=== PATIENT | female | born 1995 | race Caucasian/White ===

== ENCOUNTER → 2019-06-10 10:15 | Outpatient (BNVA) | payer MEDICAID, SELFPAY | PROVIDERS: Family Provider Family Medicine; Visit Provider Obstetrics & Gynecology | DX: N97.0 Female infertility associated with anovulation (principal) | CPT/HCPCS: 84144 ==

== ENCOUNTER → 2019-07-13 09:05 | Outpatient (BNVA) | payer MEDICAID, SELFPAY | PROVIDERS: Family Provider Family Medicine; Visit Provider Obstetrics & Gynecology | DX: N97.0 Female infertility associated with anovulation (principal) | CPT/HCPCS: 84144 ==

== ENCOUNTER → 2019-11-06 11:03 | Outpatient (BNVA) | payer MEDICAID, SELFPAY | PROVIDERS: Family Provider Family Medicine; Visit Provider Obstetrics & Gynecology | DX: E28.2 Polycystic ovarian syndrome (principal) | CPT/HCPCS: 84144 ==

== ENCOUNTER → 2020-03-07 16:46 | Outpatient (BNVA) | payer MEDICAID, SELFPAY | PROVIDERS: Family Provider Family Medicine; Visit Provider Obstetrics & Gynecology | DX: E28.2 Polycystic ovarian syndrome (principal) | CPT/HCPCS: 84146; 84443 ==

== ENCOUNTER → 2020-03-29 12:54 | Outpatient (BNVA) | payer MEDICAID, SELFPAY | PROVIDERS: Family Provider Family Medicine; Visit Provider Internal Medicine | DX: E28.2 Polycystic ovarian syndrome (principal); L68.0 Hirsutism; N97.0 Female infertility associated with anovulation; R63.5 Abnormal weight gain; Z86.32 Personal history of gestational diabetes | CPT/HCPCS: 99204 ==

== ENCOUNTER 2020-06-10 10:15 | Emergency (ER) | payer MEDICAID, SELFPAY ==
[2020-06-10 10:16] VITALS: BP 142/98; PULSE 118; RESP 18; TEMP 36.7; O2SAT 98; BMI 38.2
[2020-06-10 10:26] VITALS: RESP 18
--- NOTE | 2020-06-10 10:28 | CT_ITS ---
WS: [id number] CT HEAD TECHNIQUE: Noncontrast CT of the head obtained from the skullbase to the vertex. CLINICAL INFORMATION: fall + LOC COMPARISON: None. DLP: 769.[address] scans at [facility] use at least one of these dose optimization techniques: automat ed exposure control; mA and/or kV adjustment per patient size (includes targeted exams where dose is matched to clinical indication); or iterative reconstruction. FINDINGS: No evidence of intracranial hemorrhage or mass effect. Ventricular system and basal cisterns are gutierrez nt. No extra-axial fluid collections. No evidence of mass or mass effect. Normal kemp-white differen tiation. Paranasal sinuses and mastoid air cells are well aerated. . Soft tissue edema overlying the left dodie etal convexity. No visualized calvarial fractures. CT/CT head wo con* [id number] IMPRESSION: 1. No evidence of intracranial hemorrhage or mass effect. 2. Soft tissue edema left parietal convexity. 3. No acute intracranial findings.
--- NOTE | 2020-06-10 10:31 | CT_ITS ---
WS: [id number] CT CERVICAL TRAUMA TECHNIQUE: Noncontrast CT of the cervical spine with coronal and sagittal reformatted images. CLINICAL INFORMATION: fall, neck tenderness COMPARISON: None. DLP: 782.[address] scans at [facility] use at least one of these dose optimization techniques: automat ed exposure control; mA and/or kV adjustment per patient size (includes targeted exams where dose is matched to clinical indication); or iterative reconstruction. FINDINGS: Straightening of the normal cervical lordosis. Normal craniocervical junction. Normal C1-C2 articulat ion. Dens is normal in appearance. Normal occipital condyles. No high-grade spinal canal narrowing. N ormal C1 ring. No evidence of acute fracture or dislocation. Normal prevertebral soft tissues. Mastoids air cells are well aerated. CT/CT cervical spin wo con* [id number] IMPRESSION: No evidence of acute fracture or dislocation. No acute cervical spine findings.
--- NOTE | 2020-06-10 10:32 | ED_ITS ---
HPI - Fall General: Chief Complaint: Fall Stated Complaint: FALL/ HIT HEAD Time Seen by Provider: 06/10/20 10:27 History of Present Illness: HPI Narrative: Patient arrives via ambulance with chief complaint of a recent fall about 30 minutes ago. 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 Has history anxiety and hypertension. Patient denies any nausea and vomiting. Denies any neurological symptoms besides headache and neck tenderness. complaint: fall Onset (ago): minute(s) Fall from: standing Fall witnessed: yes, by bystander Place fall occurred: home Loss of consciousness: Unsure Prolonged down time: no Symptoms prior to fall: none Context: tripped/slipped (On ice) Location of injury: head and neck Severity: mild Severity scale (1-10): 1 Quality: aching Associated symptoms-after fall: Reports headache(s) (Since fall) and neck pain (Neck tenderness); Denies abdominal pain or chest pain Review of Systems Const: Denies: fever(s), chills or body aches Eyes: Denies: change in vision or blurry vision ENMT: Denies: throat pain or nasal congestion Card: Denies: chest pain or dyspnea on exertion Resp: Denies: dyspnea, productive cough or non-productive cough GI: Denies: abdominal pain, nausea or vomiting Musc: Reports: neck pain (Neck tenderness) Skin/Breast: Denies: rash Neuro: Reports: headache(s) (Since fall) Psych: Denies: anxiety or depression Ferny/Lymph: Denies: easy bruising [facility] ED PFSH: Medical History (Updated 03/30/20 @ 10:00 by Donte Mahmood MD) History of gestational diabetes Hypothyroidism Polycystic ovarian syndrome Diag in 01/2017. Evaluated and treated by Repro-Endo in past with Letrozole and able to conceive. Surgical History No significant past surgical history Family History Grandmother Dementia Paternal Social History Smoking and tobacco status: current every day smoker Alcohol intake: current Female Reproductive History: Date of last menstrual period: 05/30/20 Physical Exam Const: COMMON NORMALS: no acute distress, average body habitus and patient oriented x3 HENMT: COMMON NORMALS: normocephalic HEAD & SCALP: normal to inspection and normocephalic FACE & SINUS: normal facial exam Eye: COMMON NORMALS: conjunctivae normal GENERAL EYE: appearance normal, both eyes and all related structures CONJUNCTIVA: Yes conjunctivae normal Neck/C-Spine: COMMON NORMALS: no JVD CERVICAL SPINE: Yes cervical ROM normal, No Cervical spine tenderness and Yes Paracervical muscle tenderness Chest: COMMONS NORMALS: normal inspection of the chest Resp: COMMON NORMALS: normal respiratory effort and clear to auscultation bilaterally AUSCULTATION: clear to auscultation bilaterally Cardio: COMMON NORMALS: no JVD, regular rate and regular rhythm RATE: regular rate RHYTHM: regular rhythm GI: COMMON NORMALS: Normal to inspection, nondistended, normoactive bowel sounds present Extremity: COMMON NORMALS: normal to inspection and full ROM Neuro: COMMON NORMALS: patient oriented x3, CN's II-XII intact bilaterally, moves all extremities, no focal motor deficits and no sensory deficits noted Course Vital Signs: Vital signs: Vital Signs Temperature 98.1 F 06/10/20 10:16 Pulse Rate 118 H 06/10/20 10:16 Respiratory Rate 18 06/10/20 10:26 Blood Pressure 142/98 06/10/20 10:16 Pulse Oximetry 98 06/10/20 10:16 Discharge Plan Discharge Prescriptions: No Action clomiphene citrate 50 mg tablet 50 mg PO .COMPLEX 5 Days Qty: 5 RF: 0 dexamethasone 2 mg tablet 2 mg PO .COMPLEX Qty: 12 RF: 0 medroxyprogesterone [Provera] 10 mg tablet 10 mg PO DAILY Qty: 10 RF: 12 Coding Level of Care Code ED Senior Coldfusion Developer for Tye Rondon
[2020-06-10 11:56] VITALS: BP 162/99; PULSE 99; RESP 18; O2SAT 97
== END 2020-06-10 11:48 | disposition home or self-care (01) ==
PROVIDERS: Emergency Provider Nurse Practitioner Family; PCP Family Medicine
DX: S09.90XA Unspecified injury of head, initial encounter (principal); F17.210 Nicotine dependence, cigarettes, uncomplicated; W00.0XXA Fall on same level due to ice and snow, initial encounter
CPT/HCPCS: 70450; 72125; 99283

== ENCOUNTER 2020-06-20 20:00 | Outpatient (CLI) | payer MEDICAID, SELFPAY | END 2020-06-20 20:01 | disposition home or self-care (01) | LOC: SLEEP 06-21 09:26 | PROVIDERS: PCP Family Medicine; Visit Provider Family Medicine | DX: G47.10 Hypersomnia, unspecified (principal); G47.33 Obstructive sleep apnea (adult) (pediatric) | CPT/HCPCS: 95810 ==

== ENCOUNTER → 2020-08-17 09:15 | Outpatient (BNVA) | payer MEDICAID, SELFPAY | PROVIDERS: PCP Family Medicine; Visit Provider Obstetrics & Gynecology | DX: Z12.4 Encounter for screening for malignant neoplasm of cervix (principal) | CPT/HCPCS: 88175 ==

== ENCOUNTER → 2020-08-29 14:28 | Outpatient (BNVA) | payer MEDICAID, SELFPAY | PROVIDERS: PCP Family Medicine; Visit Provider Obstetrics & Gynecology | DX: E28.2 Polycystic ovarian syndrome (principal) | CPT/HCPCS: 76830 ==

== ENCOUNTER → 2020-09-06 09:13 | Outpatient (BNVA) | payer MEDICAID, SELFPAY | PROVIDERS: PCP Family Medicine; Visit Provider Obstetrics & Gynecology | DX: N93.9 Abnormal uterine and vaginal bleeding, unspecified (principal); E28.2 Polycystic ovarian syndrome; E03.9 Hypothyroidism, unspecified | CPT/HCPCS: 80061; 83036 ==

== ENCOUNTER → 2021-03-22 08:34 | Outpatient (BNVA) | payer MEDICAID, SELFPAY | PROVIDERS: PCP Family Medicine; Visit Provider Obstetrics & Gynecology | DX: Z13.220 Encounter for screening for lipoid disorders (principal); N93.9 Abnormal uterine and vaginal bleeding, unspecified | CPT/HCPCS: 80061 ==

== ENCOUNTER → 2021-07-17 13:55 | Outpatient (BNVA) | payer MEDICAID, SELFPAY | PROVIDERS: PCP Family Medicine; Visit Provider Obstetrics & Gynecology | DX: Z01.419 Encounter for gynecological examination (general) (routine) without abnormal findings (principal); E28.2 Polycystic ovarian syndrome | CPT/HCPCS: 84144 ==

== ENCOUNTER → 2022-07-23 15:19 | Outpatient (BNVA) | payer BC, MEDICAID, SELFPAY | PROVIDERS: PCP Family Medicine; Visit Provider Obstetrics & Gynecology | DX: N92.6 Irregular menstruation, unspecified (principal) | CPT/HCPCS: 84443 ==

== ENCOUNTER → 2023-05-14 08:03 | Outpatient (BNVA) | payer BC, MEDICAID, SELFPAY | PROVIDERS: PCP Family Medicine; Visit Provider Nurse Practitioner Women's Health | DX: N88.8 Other specified noninflammatory disorders of cervix uteri (principal) | CPT/HCPCS: 76830 ==

== ENCOUNTER → 2023-06-13 09:00 | Outpatient (BNVA) | payer BC, MEDICAID, SELFPAY | PROVIDERS: PCP Family Medicine; Visit Provider Nurse Practitioner Women's Health | DX: E28.2 Polycystic ovarian syndrome (principal) | CPT/HCPCS: 84144 ==

== ENCOUNTER → 2023-07-24 08:36 | Outpatient (BNVA) | payer BC, MEDICAID, SELFPAY | PROVIDERS: PCP Family Medicine; Visit Provider Nurse Practitioner Women's Health | DX: E28.2 Polycystic ovarian syndrome (principal) | CPT/HCPCS: 84144 ==

== ENCOUNTER → 2023-07-31 09:30 | Outpatient (BNVA) | payer BC, MEDICAID, SELFPAY | PROVIDERS: PCP Family Medicine; Visit Provider Nurse Practitioner Women's Health | DX: N92.6 Irregular menstruation, unspecified (principal) | CPT/HCPCS: 84702 ==

== ENCOUNTER → 2023-08-02 10:00 | Outpatient (BNVA) | payer BC, MEDICAID, SELFPAY | PROVIDERS: PCP Family Medicine; Visit Provider Nurse Practitioner Women's Health | DX: E28.2 Polycystic ovarian syndrome (principal) | CPT/HCPCS: 84702 ==

== ENCOUNTER → 2023-08-05 09:13 | Outpatient (BNVA) | payer BC, MEDICAID, SELFPAY | PROVIDERS: PCP Family Medicine; Visit Provider Nurse Practitioner Women's Health | DX: R10.2 Pelvic and perineal pain (principal) | CPT/HCPCS: 84702 ==

== ENCOUNTER → 2023-08-08 08:20 | Outpatient (BNVA) | payer BC, MEDICAID, SELFPAY | PROVIDERS: PCP Family Medicine; Visit Provider Nurse Practitioner Women's Health | DX: E28.2 Polycystic ovarian syndrome (principal) | CPT/HCPCS: 84702 ==

== ENCOUNTER 2024-02-18 09:11 | Outpatient (CLI) | payer BC, MEDICAID, SELFPAY ==
[2024-02-18 09:24] VITALS: BP 143/78; PULSE 122
[2024-02-18 09:26] VITALS: RESP 18; BMI 40.9
[2024-02-18 09:40] VITALS: BP 129/63; PULSE 107
== END 2024-02-18 09:52 ==
LOC: OPOB 09:12 → OBGYN 09:14
PROVIDERS: PCP Family Medicine; Visit Provider Family Medicine
DX: O24.419 Gestational diabetes mellitus in pregnancy, unspecified control (principal); Z3A.00 Weeks of gestation of pregnancy not specified
CPT/HCPCS: 59025

== ENCOUNTER 2024-02-21 08:48 | Outpatient (CLI) | payer BC, MEDICAID, SELFPAY ==
[2024-02-21 08:48] VITALS: BMI 41.1
[2024-02-21 09:04] VITALS: BP 143/79; PULSE 111
[2024-02-21 09:19] VITALS: BP 148/78; PULSE 106
[2024-02-21 09:34] VITALS: BP 142/72; PULSE 105
== END 2024-02-21 09:48 | disposition home or self-care (01) ==
LOC: OPOB 08:56 → OBGYN 08:59
PROVIDERS: PCP Family Medicine; Visit Provider Family Medicine
DX: O24.419 Gestational diabetes mellitus in pregnancy, unspecified control (principal); Z3A.00 Weeks of gestation of pregnancy not specified
CPT/HCPCS: 59025

== ENCOUNTER 2024-02-25 09:19 | Outpatient (CLI) | payer BC, MEDICAID, SELFPAY ==
[2024-02-25 09:19] VITALS: RESP 17; BMI 41.4
[2024-02-25 09:25] VITALS: BP 135/74; PULSE 96
[2024-02-25 09:40] VITALS: BP 127/68; PULSE 93
== END 2024-02-25 09:53 ==
LOC: OPOB 09:20 → OBGYN 09:21
PROVIDERS: PCP Family Medicine; Visit Provider Family Medicine
DX: O24.419 Gestational diabetes mellitus in pregnancy, unspecified control (principal); Z3A.00 Weeks of gestation of pregnancy not specified
CPT/HCPCS: 59025

== ENCOUNTER 2024-02-28 09:55 | Outpatient (CLI) | payer BC, MEDICAID, SELFPAY ==
[2024-02-28 10:03] VITALS: BP 132/81; PULSE 94
[2024-02-28 10:16] VITALS: TEMP 36.2
[2024-02-28 10:18] VITALS: BP 125/72; PULSE 94
[2024-02-28 10:28] VITALS: BMI 41.5
[2024-02-28 10:33] VITALS: BP 128/76; PULSE 96
== END 2024-02-28 10:49 | disposition home or self-care (01) ==
LOC: OPOB 09:59 → OBGYN 10:00
PROVIDERS: PCP Family Medicine; Visit Provider Family Medicine
DX: O26.899 Other specified pregnancy related conditions, unspecified trimester (principal); Z3A.00 Weeks of gestation of pregnancy not specified
CPT/HCPCS: 59025; 99211

== ENCOUNTER 2024-03-03 08:32 | Outpatient (CLI) | payer BC, MEDICAID, SELFPAY ==
[2024-03-03 08:30] VITALS: BMI 41.8
[2024-03-03 08:40] VITALS: BP 162/81; PULSE 102
[2024-03-03 08:41] VITALS: BP 124/59; PULSE 96
[2024-03-03 09:04] VITALS: BP 125/59; PULSE 96; RESP 17; O2SAT 98
== END 2024-03-03 09:04 | disposition home or self-care (01) ==
LOC: OPOB 08:33 → OBGYN 08:33
PROVIDERS: PCP Family Medicine; Visit Provider Family Medicine
DX: O24.419 Gestational diabetes mellitus in pregnancy, unspecified control (principal); Z3A.00 Weeks of gestation of pregnancy not specified
CPT/HCPCS: 59025; 99211

== ENCOUNTER 2024-03-06 08:37 | Outpatient (CLI) | payer BC, MEDICAID, SELFPAY ==
[2024-03-06 08:40] VITALS: BMI 41.8
[2024-03-06 09:01] VITALS: BP 127/76; PULSE 85
[2024-03-06 09:22] VITALS: BP 122/73; PULSE 89
== END 2024-03-06 09:40 | disposition home or self-care (01) ==
LOC: OPOB 08:41 → OBGYN 08:59
PROVIDERS: PCP Family Medicine; Visit Provider Family Medicine
DX: O24.419 Gestational diabetes mellitus in pregnancy, unspecified control (principal); Z3A.00 Weeks of gestation of pregnancy not specified
CPT/HCPCS: 59025; 99211

== ENCOUNTER 2024-03-10 08:40 | Outpatient (CLI) | payer BC, MEDICAID, SELFPAY ==
[2024-03-10 08:40] VITALS: RESP 16; BMI 41.5
[2024-03-10 08:48] VITALS: BP 122/66; PULSE 91
[2024-03-10 09:02] VITALS: BP 120/66; PULSE 92
[2024-03-10 09:17] VITALS: BP 128/67; PULSE 87
[2024-03-10 09:34] VITALS: BP 124/72; PULSE 87
[2024-03-10 09:40] VITALS: BP 124/72; PULSE 87; RESP 16; O2SAT 98
== END 2024-03-10 09:40 ==
LOC: OPOB 08:41 → OBGYN 08:42
PROVIDERS: PCP Family Medicine; Visit Provider Family Medicine
DX: O24.419 Gestational diabetes mellitus in pregnancy, unspecified control (principal); Z3A.00 Weeks of gestation of pregnancy not specified
CPT/HCPCS: 59025; 99211

== ENCOUNTER 2024-03-13 08:44 | Outpatient (CLI) | payer BC, MEDICAID, SELFPAY ==
[2024-03-13 08:42] VITALS: BMI 41.8
[2024-03-13 08:58] VITALS: BP 134/64; PULSE 90
[2024-03-13 09:13] VITALS: BP 120/58; PULSE 88
[2024-03-13 09:20] VITALS: RESP 17
== END 2024-03-13 09:30 | disposition home or self-care (01) ==
LOC: OPOB 08:45 → OBGYN 08:46
PROVIDERS: PCP Family Medicine; Visit Provider Family Medicine
DX: O24.419 Gestational diabetes mellitus in pregnancy, unspecified control (principal); Z3A.00 Weeks of gestation of pregnancy not specified
CPT/HCPCS: 59025

== ENCOUNTER 2024-03-17 09:40 | Outpatient (CLI) | payer BC, MEDICAID, SELFPAY ==
[2024-03-17 09:45] VITALS: BMI 41.9
[2024-03-17 09:52] VITALS: BP 137/78; PULSE 97
[2024-03-17 10:13] VITALS: BP 142/66; PULSE 102
[2024-03-17 10:32] VITALS: BP 135/77; PULSE 98
== END 2024-03-17 10:45 ==
LOC: OPOB 09:40 → OBGYN 09:41
PROVIDERS: PCP Family Medicine; Visit Provider Family Medicine
DX: O24.419 Gestational diabetes mellitus in pregnancy, unspecified control (principal); Z3A.00 Weeks of gestation of pregnancy not specified
CPT/HCPCS: 59025

== ENCOUNTER 2024-03-20 10:45 | Outpatient (CLI) | payer BC, MEDICAID, SELFPAY ==
[2024-03-20 10:56] VITALS: BP 130/74; PULSE 111
[2024-03-20 11:05] VITALS: BMI 41.9
== END 2024-03-20 11:43 ==
LOC: OPOB 10:46 → OBGYN 10:47
PROVIDERS: PCP Family Medicine; Visit Provider Family Medicine
DX: O24.419 Gestational diabetes mellitus in pregnancy, unspecified control (principal); Z3A.00 Weeks of gestation of pregnancy not specified
CPT/HCPCS: 59025

== ENCOUNTER 2024-03-24 08:32 | Outpatient (CLI) | payer BC, MEDICAID, SELFPAY ==
[2024-03-24 08:43] VITALS: BP 138/77; PULSE 103
[2024-03-24 08:55] VITALS: BMI 41.9
[2024-03-24 08:57] VITALS: BP 141/79; PULSE 96
[2024-03-24 09:13] VITALS: BP 138/85; PULSE 104
[2024-03-24 09:27] VITALS: BP 131/73; PULSE 106
== END 2024-03-24 09:45 | disposition home or self-care (01) ==
LOC: OPOB 08:32 → OBGYN 08:36
PROVIDERS: PCP Family Medicine; Visit Provider Family Medicine
DX: O24.419 Gestational diabetes mellitus in pregnancy, unspecified control (principal); Z3A.00 Weeks of gestation of pregnancy not specified
CPT/HCPCS: 59025

== ENCOUNTER 2024-03-27 09:28 | Outpatient (CLI) | payer BC, MEDICAID, SELFPAY ==
[2024-03-27 09:34] VITALS: BP 139/78; PULSE 122
[2024-03-27 09:50] VITALS: BP 129/72; PULSE 100
[2024-03-27 09:57] VITALS: BMI 42.0
[2024-03-27 10:06] VITALS: BP 129/72; PULSE 100; RESP 15
== END 2024-03-27 10:06 | disposition home or self-care (01) ==
LOC: OPOB 09:28 → OBGYN 09:31
PROVIDERS: PCP Family Medicine; Visit Provider Family Medicine
DX: O24.419 Gestational diabetes mellitus in pregnancy, unspecified control (principal); Z3A.00 Weeks of gestation of pregnancy not specified
CPT/HCPCS: 59025

== ENCOUNTER 2024-03-31 09:05 | Outpatient (CLI) | payer BC, MEDICAID, SELFPAY ==
[2024-03-31 09:15] VITALS: BP 138/69; PULSE 96
[2024-03-31 09:20] VITALS: BMI 42.0
[2024-03-31 09:35] VITALS: BP 126/68; PULSE 91
--- NOTE | 2024-03-31 09:37 | PC.NURSE ---
Fetus verified cephalic presentation by Cullen Combs RN and Joanne Montenegro RN using bedside US.
== END 2024-03-31 09:38 | disposition home or self-care (01) ==
LOC: OPOB 09:06 → OBGYN 09:06
PROVIDERS: PCP Family Medicine; Visit Provider Family Medicine
DX: O24.419 Gestational diabetes mellitus in pregnancy, unspecified control (principal); Z3A.00 Weeks of gestation of pregnancy not specified
CPT/HCPCS: 59025

== ENCOUNTER 2024-04-03 07:56 | Inpatient (IN) | payer BC, MEDICAID, SELFPAY ==
[2024-04-03] VITALS (49 sets, daily range): BP systolic 99–144; BP diastolic 51–78; PULSE 72–121; RESP 18–19; BMI 42.7
[2024-04-03 08:06] LABS: Basophils % 0.2 %; Eosinophils # 0.1 10^3/uL (0.0-0.8); Eosinophils % 0.7 %; Hematocrit 35.5 % (36-47); Lymphocytes # 1.4 10^3/uL (0.8-4.8); Lymphocytes % 16.3 %; Mean Corpuscular HGB Conc 32.7 g/dL (30-55); Mean Corpuscular Hemoglobin 26.8 pg (27-33); Mean Platelet Volume 9.5 fL (7.4-10.4); Monocytes # 0.7 10^3/uL (0.2-0.9); Monocytes % 7.7 %; Neutrophils % 74.6 %; Nucleated Red Blood Cells % 0 %; Platelet Count 183 10^3/cmm (157-399); Red Blood Count 4.33 10^6/uL (3.85-5.65); Red Cell Distribution Width 15.1 % (12.1-15.1); White Blood Count 8.58 10^3/uL (3.29-11.43)
[2024-04-03] MEDS: dextrose 5%-lactated ringers 1,000 ML 125 ML IV ×2 (08:09→17:59)
[2024-04-03] MEDS: ampicillin 2,000 MG in sodium chloride 0.9% (plus) 50 ML 100 MG IV (08:14)
[2024-04-03] MEDS: oxytocin 30 UNIT/500 ML BAG IV (08:15)
--- NOTE | 2024-04-03 08:34 | PM.OBGYHP ---
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 The patient has a history of gestational diabetes that is been managed well on oral medications. Patient initially saw maternal- medicine and underwent level 2 ultrasounds without any concerning findings. No other significant complications during . The patient underwent testing without any concerning findings. Patient had a growth ultrasound at 36 weeks which showed an approximate weight of 6 pounds. Patient is GBS positive. No other concerning lab abnormalities. Present Details Obstetrical complications: gestational diabetes Labs Rubella: Immune RPR: Negative GBS: Positive HBsAG: Negative L&D/Induction Specific History Indication for induction OB: medical complication (Gestational diabetes) Review of Systems Const: Denies: fever(s), change in appetite or fatigue Eyes: Denies: change in vision, blurry vision, blind spots, floaters or seeing flashes Card: Denies: palpitations, irregular heart rhythm, edema, lightheadedness, syncope or pre-syncope Resp: Denies: dyspnea or pain on inspiration GI: Denies: nausea, vomiting, heartburn or GI cramping : Reports: vaginal bleeding, irregular period and amenorrhea; Denies: difficulty voiding, dysuria, genital pruritis, vaginal odor or vaginal discharge Musc: Denies: back pain, limited range of motion or muscle cramps Skin/Breast: Denies: rash, pruritus, breast tenderness or nipple discharge Neuro: Denies: headache(s) or numbness in extremities Psych: Denies: anxiety, depression, mood swings or panic attacks Endo: Denies: polyuria, tired all the time or hot flashes Ferny/Lymph: Denies: easy bruising or petechiae Medications/Allergies Home Medications Medication Instructions Recorded Confirmed Last Taken Type medroxyprogesterone 10 mg tablet 10 mg PO DAILY PCOS #10 tabs 04/04/23 03/31/24 03/30/24 22:30 Rx (Provera) progesterone micronized 100 mg 200 mg vaginal ONCE #21 ea 06/27/23 03/24/24 Unknown Rx vaginal insert letrozole 2.5 mg tablet See Rx Instructions .Route 07/22/23 03/31/24 03/30/24 22:30 Rx .COMPLEX #5 tabs glyburide 5 mg tablet mg 02/25/24 03/30/24 22:30 History metformin 500 mg tablet 500 mg PO DAILY 02/25/24 03/31/24 03/30/24 22:30 History Allergies Allergy/AdvReac Type Severity Reaction Status Date / Time No Known Allergies Allergy Verified 02/25/24 10:51 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 Reid Hypothyroidism States that she was diagnosed at the age of 14 with hypothyroidism and took medication until 2016 when lab work showed that she did not have hypothyroidism anymore. Polycystic ovarian syndrome Diagnosed in 01/2017 based on ultrasound, lab work and oligomenorrhea. Was treated by reproductive endocrinology in [place] with letrozole and got in 2018. Surgical History No significant past surgical history Family History Grandmother Thyroid cancer maternal Diabetes maternal Denies family history of Colon cancer Ovarian cancer Heart disease Hyperlipidemia Breast cancer Hypertension Uterine cancer Stroke Social History Smoking and tobacco/nicotine status: former use of tobacco/nicotine Alcohol intake: current Substance/Drug Use: never History History History 1 Term 1 0 Miscarriages/Ectopic 0 Living Children 1 Vitals/I&O/Wt Last Vital Signs Pulse 98 04/03/24 08:19 Resp 18 04/03/24 07:57 BP 130/69 04/03/24 08:19 Physical Exam Const: COMMON NORMALS: no acute distress, patient oriented x3, healthy appearing and alert Resp: COMMON NORMALS: normal respiratory effort, No retractions and No use of accessory muscles Cardio: COMMON NORMALS: no JVD, regular rate and regular rhythm GI: OTHER: Gravid Extremity: COMMON NORMALS: no clubbing, cyanosis or edema Neuro: COMMON NORMALS: moves all extremities and no focal motor deficits Psych: COMMON NORMALS: mental status grossly normal and cooperative Skin: COMMON NORMALS: no rashes or lesions noted Data 04/03/24 07:35 Results Labs OB ([facility]): Blood Type B Positive 04/03/24 Antibody Screen Pending 04/03/24 Hct 35.5 % (36-47) L 04/03/24 Hgb 11.60 g/dL (11.27-16.99) 04/03/24 Rho(D) Type Rh positive 04/03/24 Plt Count 183 10^3/cmm (157-399) 04/03/24 TSH 2.95 uIU/mL (0.27-4.20) 07/23/22 Progesterone 6.71 ng/mL 07/24/23 Ser , Semi-Qnt 295.30 mIU/mL 08/08/23 A&P Assessment and plan (1) Gestational diabetes mellitus (GDM) affecting second : GDM A2 that was well-controlled on oral medications. Will plan on induction of labor. Will start Pitocin and GBS prophylaxis. (2) Term , repeat: (3) 39 weeks gestation of : Attestations Medical Necessity Statement*: Admitted for induction of labor. Anticipate at least 1 midnight stay. Coding Level of Care Code Acute Code for Chg Fwd Diagnoses Gestational diabetes mellitus (GDM) affecting second O24.419 Term , repeat Z34.90 39 weeks gestation of Z3A.39
[2024-04-03] MEDS: ampicillin 1,000 MG in sodium chloride 0.9% (plus) 50 ML 100 MG IV ×3 (12:19→20:24)
[2024-04-03 22:00] LABS: Glucose Point of Care 175 mg/dL (70-110)
[2024-04-03] MEDS: miSOPROStol 100 mcg tablet 25 MCG VAGINAL (22:22)
[2024-04-04] VITALS (87 sets, daily range): BP systolic 95–189; BP diastolic 52–112; PULSE 61–118; RESP 18; TEMP 36.8; O2SAT 95
[2024-04-04] MEDS: ampicillin 1,000 MG in sodium chloride 0.9% (plus) 50 ML 100 MG IV ×4 (01:19→14:39)
[2024-04-04] MEDS: lactated ringers 1,000 ML 125 ML IV ×3 (01:19→13:46)
[2024-04-04] MEDS: miSOPROStol 100 mcg tablet 25 MCG VAGINAL (02:47)
[2024-04-04] MEDS: oxytocin 30 UNIT/500 ML BAG IV (07:35)
[2024-04-04] MEDS: lactated ringers 1,000 ML 999 ML IV (10:55)
[2024-04-04] MEDS: ROPivacaine syringe 100 MG/50 ML SYRINGE 10 MG EPIDURAL ×2 (12:31→15:32)
--- NOTE | 2024-04-04 12:36 | P.ANESASSM_ITS ---
Pre-Anesthetic Assessment Height/Weight: Height 1.65 m Weight 116.376 kg Pulse Resp BP O2 Del Method 116 H 18 140/72 Room Air 04/04/24 12:28 04/03/24 18:45 04/04/24 12:28 04/03/24 09:21 Preop Diagnosis: Intrauterine labor epidural Familial anesthetic complications: none Was Beta Rob taken within 24 hours: N/A Was Clonidine taken within 24 hours: N/A Last intake: solid 04/03 @2000, liquids 04/04 @1130 Social No alcohol and No tobacco Exam alert, oriented x 3 and clear to auscultation bilaterally Airway Mallampati: Class III Dentition: full History/ROS No significant history except as noted Pulmonary None reported CV/HEM None reported None reported Hepatic None reported GI None reported Metabolic Morbid Obesity GDM [facility] None reported Neuropsych None reported Anesthetic Plan ASA status: 3 Anesthesia: Anesthesia Evaluation and Regional (specify below) (epidural) Risk of > 500 ml blood loss (7ml/kg in children): Yes, adequate IV access and fluids planned Medications/Allergies Home Medications Medication Instructions Recorded Confirmed Last Taken Type medroxyprogesterone 10 mg tablet 10 mg PO DAILY PCOS #10 tabs 04/04/23 03/31/24 03/30/24 22:30 Rx (Provera) progesterone micronized 100 mg 200 mg vaginal ONCE #21 ea 06/27/23 03/24/24 Unknown Rx vaginal insert letrozole 2.5 mg tablet See Rx Instructions .Route 07/22/23 03/31/24 03/30/24 22:30 Rx .COMPLEX #5 tabs glyburide 5 mg tablet mg 02/25/24 03/30/24 22:30 History metformin 500 mg tablet 500 mg PO DAILY 02/25/24 03/31/24 03/30/24 22:30 History Allergies Allergy/AdvReac Type Severity Reaction Status Date / Time No Known Allergies Allergy Verified 02/25/24 10:51 Current Medications Generic Name Dose Route Start Last Admin Trade Name Freq PRN Reason Stop Dose Admin Ampicillin Sodium 1,000 mg/ 50 mls @ 100 mls/hr 04/03/24 12:00 04/04/24 10:29 Sodium Chloride IV 100 mls/hr Q4H JESSIKA Administration Protocol Oxytocin 30 unit in 500 mls @ 1 mls/hr 04/03/24 08:00 04/04/24 07:35 Pitocin IV 1 milliunit/min .Q24H JESSIKA 1 mls/hr Administration Protocol 1 MILLIUNIT/MIN Lactated Ringer's 1,000 mls @ 125 mls/hr 04/03/24 22:45 04/04/24 01:19 Lactated Ringers IV 125 mls/hr .Q8H JESSIKA Administration Lactated Ringer's 1,000 mls @ 999 mls/hr 04/04/24 10:50 04/04/24 10:55 Lactated Ringers IV 999 mls/hr .Q1H1M PRN Administration See label comments PFSH Anesthesia Medical History No pertinent past medical history Denies diabetes, asthma, hypertension, seizures, DVT/PE PCP: Dr. Reid Hypothyroidism States that she was diagnosed at the age of 14 with hypothyroidism and took medication until 2016 when lab work showed that she did not have hypothyroidism anymore. Polycystic ovarian syndrome Diagnosed in 01/2017 based on ultrasound, lab work and oligomenorrhea. Was treated by reproductive endocrinology in [place] with letrozole and got in 2018. Surgical History No significant past surgical history Family History Grandmother Thyroid cancer maternal Diabetes maternal Denies family history of Colon cancer Ovarian cancer Heart disease Hyperlipidemia Breast cancer Hypertension Uterine cancer Stroke Social History Smoking and tobacco/nicotine status: former use of tobacco/nicotine Alcohol intake: current Substance/Drug Use: never Female Reproductive History : 2 Data Anesthesia 04/03/24 07:35 Short CBC 04/03/24 Range/Units 07:35 WBC 8.58 (3.29-11.43) 10^3/uL Hgb 11.60 (11.27-16.99) g/dL Hct 35.5 L (36-47) % MCV 82.0 L (85-98) fl Plt Count 183 (157-399) 10^3/cmm Neut % (Auto) 74.6 % Neut # (Auto) 6.40 (1.8-7.7) 10^3/uL Blood Bank 04/03/24 07:35 Blood Type B Positive Rho(D) Type Rh positive Antibody Screen Negative Cardiac Studies: 2 No Data to Display Anesthesia Procedures Epidural Time Out Performed: Yes Consents Signed: Procedure Consent Consent: requested by attending/covering physician, from patient, risks and benefits reviewed and patient agrees to proceed Lumbar Level: L4-L5 Epidural position: sitting Epidural procedure: sterile prep of area, 1% lidocaine to numb the area, 18 g needle, negative for paresthesia passed, neg for paresthesia, test dose given, 1.5% xylocaine 1:200k epi, 0.2% Ropivacaine bolus ml (5), placed PCEA, no systemic response, sterile dressing applied, L.U.D. no apparent complications and 0.2% Ropiavacaine @ mls/hr (10) Additional Comments: DANDRE 7cm, catheter easily threaded to 5cm in the space. VS monitored throughout and remained stable. 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
--- NOTE | 2024-04-04 13:46 | P.PN_ITS ---
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 Patient was on Pitocin for 12 hours yesterday but did not make any significant progress. The patient was given 2 doses of Cytotec overnight which did mild some mild dilation and contractions. Pitocin was added earlier this morning and contraction pattern did finally become more regular and more painful. The patient also had spontaneous rupture membranes. The patient underwent epidural and dilation had progressed to 7 to 8 cm. heart tones had a prolonged deceleration after epidural but responded to interventions. Patient is now having early decelerations with contractions. Last check was 9 and half centimeters. Labor: Dilation (cm): 9 Effacement (%): 100 Station: -2 A mniotic Membrane Status: Ruptured Monitor Mode: External Contraction Pattern: Irregular Status: Category I Vitals/I&O/Wt Last Vital Signs Pulse 104 H 04/04/24 13:41 Resp 18 04/03/24 18:45 BP 116/58 04/04/24 13:41 O2 Del Method Room Air 04/03/24 09:21 04/03/24 04/04/24 04/04/24 22:59 06:59 14:59 Intake Total 1235 / 1388.25 100 / 1488.25 2168.75 / 2168.75 Balance 1235 / 1388.25 100 / 1488.25 2168.75 / 2168.75 Weight last 48 hrs Weight 116.376 kg Physical Exam 2 Const: COMMON NORMALS: no acute distress, patient oriented x3, healthy appearing and alert Neck/C-Spine: COMMON NORMALS: no JVD Resp: COMMON NORMALS: normal respiratory effort, No retractions and No use of accessory muscles Cardio: COMMON NORMALS: no JVD, regular rate and regular rhythm RATE: r egular rate RHYTHM: regular rhythm GI: OTHER: Gravid Extremity: COMMON NORMALS: no clubbing, cyanosis or edema Neuro: COMMON NORMALS: patient oriented x3, moves all extremities and no focal motor deficits SENSORIUM/ORIENTATION: Yes alert Psych: COMMON NORMALS: mental status grossly normal and cooperative Skin: COMMON NORMALS: no rashes or lesions noted GENERAL SKIN EXAM: no rashes or lesions noted Data 04/03/24 07:35 A&P Assessment and plan (1) Gestational diabetes mellitus (GDM) affecting second : GDM A2 that was well-controlled on oral medications. Continue with labor management. The patient is progressing well and will start pushing with contractions when completely dilated. (2) Term , repeat: (3) 39 weeks gestation of : Attestations 2 Medical Necessity Statement*: Patient admitted for induction of labor. Anticipate 2 midnight stay. Coding Level of Care Code Acute Code for Chg Fwd Diagnoses Gestational diabetes mellitus (GDM) affecting second O24.419 Term , repeat Z34.90 39 weeks gestation of Z3A.39
[2024-04-04] MEDS: methylergonovine 0.2 mg/mL INJ 1 mL IM (19:04)
--- NOTE | 2024-04-04 19:25 | PM.DELIVERY ---
Delivery Note: Date of delivery: April 04, 2024 Pre-delivery diagnoses: Term intrauterine , gestational diabetes Post-delivery diagnoses: Same, viable infant female Procedure: Spontaneous vaginal delivery Delivering Physician: Dr. Brett Ballesteros Estimated blood loss (mL): 300 Pre-Delivery Course: This is a 28-year-old that presented at 39 weeks 1 day for induction of labor. The patient underwent Pitocin followed by Cytotec and then back to Pitocin before completely dilating. Delivery: Once patient was completely dilated the patient was placed into the normal lithotomy position and started pushing with contractions. After approximately 2 hours of pushing the patient delivered the 's head followed by the body. was placed on mother's abdomen and after delay the cord was clamped and cut. Placenta was delivered soon after. The perineum showed a second-degree perineal tear. Pitocin was started but continued bleeding was noted so Methergine was also administered. The perineal tear was then repaired with 2-0 Vicryl. No other significant tears noted. To the procedure bleeding was managed. Uterus was firm. Post-Delivery Status: Stable History History History 1 Term 1 0 Miscarriages/Ectopic 0 Living Children 1 A&P Assessment and plan (1) Spontaneous vaginal delivery: Proceed with routine care. Coding Level of Care Code Acute Code for Chg Fwd Diagnoses Spontaneous vaginal delivery O80
[2024-04-04] MEDS: HYDROcodone-acetaminophen 5-325 mg Tablet 2 TAB PO (19:56)
[2024-04-04] MEDS: lanolin oint 7 gm 1 APPLIC TOPICAL (19:56)
[2024-04-04] MEDS: ibuprofen 800 mg tablet PO (20:05)
[2024-04-04] MEDS: benzocaine-menthol 78 gm Canister 1 SPRAY TOPICAL (20:08)
[2024-04-05] VITALS (7 sets, daily range): BP systolic 100–138; BP diastolic 63–91; PULSE 78–118; RESP 16–17; TEMP 36.6–37.6; O2SAT 97–98
[2024-04-05] MEDS: ibuprofen 800 mg tablet PO ×2 (08:30→15:30)
[2024-04-05] MEDS: docusate sodium 100 mg Capsule PO (08:30)
[2024-04-05] MEDS: PRENATAL VIT NO.130/IRON/FOLIC 1 EACH TABLET PO (08:30)
[2024-04-05 09:00] LABS: Hematocrit 31.2 % (36-47); Mean Corpuscular HGB Conc 32.1 g/dL (30-55); Mean Corpuscular Hemoglobin 26.3 pg (27-33); Mean Corpuscular Volume 82.1 fl (85-98); Mean Platelet Volume 9.7 fL (7.4-10.4); Platelet Count 179 10^3/cmm (157-399); Red Cell Distribution Width 15.1 % (12.1-15.1); White Blood Count 10.26 10^3/uL (3.29-11.43)
--- NOTE | 2024-04-05 13:28 | PM.OBGYDC ---
Discharge Providers [employer] Date of Admission: 04/03/24 07:56 Date of Discharge: 04/05/24 Attending Provider at Admission: Brett Ballesteros MD Attending Provider at Discharge: Brett Ballesteros MD Primary Care Provider: Dk Reid MD Diagnoses at Discharge Discharge Diagnosis (1) Spontaneous vaginal delivery: Status: Acute Reason for Visit Reason for Visit: IOL GDM Hospital Course Hospital Course This is a 28-year-old G2, P2 that presented at 39 weeks 1 day for induction of labor. Patient underwent induction successfully to deliver a viable infant female vaginally. History of gestational diabetes and blood sugars are done well since admission. There were no complications. Lochia has been appropriate. Information Peripartum Data: Infant Delivery Method: Vaginal Physical Exam Const: COMMON NORMALS: no acute distress, patient oriented x3, healthy appearing and alert Neck/C-Spine: COMMON NORMALS: no JVD Resp: COMMON NORMALS: normal respiratory effort, No retractions and No use of accessory muscles Cardio: COMMON NORMALS: no JVD, regular rate and regular rhythm RATE: regular rate RHYTHM: regular rhythm GI: OTHER: Uterus firm and below the umbilicus Extremity: COMMON NORMALS: no clubbing, cyanosis or edema Neuro: COMMON NORMALS: patient oriented x3, moves all extremities and no focal motor deficits SENSORIUM/ORIENTATION: Yes alert Psych: COMMON NORMALS: mental status grossly normal and cooperative Skin: COMMON NORMALS: no rashes or lesions noted GENERAL SKIN EXAM: no rashes or lesions noted History History History 1 Term 1 0 Miscarriages/Ectopic 0 Living Children 1 Discharge Data Studies Completed and Pending Laboratory Results WBC 10.26 10^3/uL (3.29-11.43) 04/05/24 07:50 RBC 3.80 10^6/uL (3.85-5.65) L 04/05/24 07:50 Hgb 10.00 g/dL (11.27-16.99) L 04/05/24 07:50 Hct 31.2 % (36-47) L 04/05/24 07:50 MCV 82.1 fl (85-98) L 04/05/24 07:50 MCH 26.3 pg (27-33) L 04/05/24 07:50 MCHC 32.1 g/dL (30-55) 04/05/24 07:50 RDW 15.1 % (12.1-15.1) 04/05/24 07:50 Plt Count 179 10^3/cmm (157-399) 04/05/24 07:50 MPV 9.7 fL (7.4-10.4) 04/05/24 07:50 Neut % (Auto) 74.6 % 04/03/24 07:35 Lymph % (Auto) 16.3 % 04/03/24 07:35 [place] % (Auto) 7.7 % 04/03/24 07:35 Eos % (Auto) 0.7 % 04/03/24 07:35 Baso % (Auto) 0.2 % 04/03/24 07:35 Neut # (Auto) 6.40 10^3/uL (1.8-7.7) 04/03/24 07:35 Lymph # (Auto) 1.4 10^3/uL (0.8-4.8) 04/03/24 07:35 [place] # (Auto) 0.7 10^3/uL (0.2-0.9) 04/03/24 07:35 Eos # (Auto) 0.1 10^3/uL (0.0-0.8) 04/03/24 07:35 Baso # (Auto) 0.0 10^3/uL (0.0-0.1) 04/03/24 07:35 Nucleated RBC % (auto) 0 % 04/03/24 07:35 Nucleated RBCs # 0.0 /100WBC 04/03/24 07:35 POC Glucose 175 mg/dL (70-110) H 04/03/24 21:56 Blood Type B Positive 04/03/24 07:35 Rho(D) Type Rh positive 04/03/24 07:35 Antibody Screen Negative 04/03/24 07:35 Vitals Last Vital Signs Temp 98.2 F 04/05/24 09:30 Pulse 82 04/05/24 09:30 Resp 17 04/05/24 09:30 BP 117/77 04/05/24 09:30 Pulse Ox 97 04/05/24 09:30 O2 Del Method Room Air 04/05/24 09:30 Results Labs OB ([facility]): Blood Type B Positive 04/03/24 Antibody Screen Negative 04/03/24 Hct 31.2 % (36-47) L 04/05/24 Hgb 10.00 g/dL (11.27-16.99) L 04/05/24 Rho(D) Type Rh positive 04/03/24 Plt Count 179 10^3/cmm (157-399) 04/05/24 TSH 2.95 uIU/mL (0.27-4.20) 07/23/22 Progesterone 6.71 ng/mL 07/24/23 Ser , Semi-Qnt 295.30 mIU/mL 08/08/23 Discharge Plan Discharge Patient Disposition: Home Condition: Stable Prescriptions: Discontinued medroxyprogesterone [Provera] 10 mg tablet 10 mg PO DAILY Qty: 10 4RF progesterone micronized 100 mg insert 200 mg vaginal ONCE Qty: 21 3RF Rx Instructions: insert before bed nightly 3-4 days after LH surge letrozole 2.5 mg tablet See Rx Instructions .ROUTE .COMPLEX Qty: 5 0RF Dose Instruction: TAKE 1 TABLET BY MOUTH ON DAYS 3-7 OF MENSTRUAL CYCLE. Rx Instructions: TAKE 1 TABLET BY MOUTH ON DAYS 3-7 OF MENSTRUAL CYCLE. metformin 500 mg Tablet 500 mg PO DAILY glyburide 5 mg Tablet Discharge Orders: Discharge Order (Routine); Ordered 04/05/24 Ordered By: Brett Ballesteros Referrals: Brett Ballesteros MD [Physician] - 6 Weeks Discharge Diet: Usual diet and As Directed Discharge Activity: Limit activity as instructed Patient Instructions: Depression (DC), Opioid Safety (DC), Preeclampsia and Eclampsia After Delivery (GEN), Hemorrhage (DC), OB Discharge Report, OB Food/Drug Interaction Guide, OB Care at Home, Opioid Safety, OB Vaginal Deliveries, Abnormal Bleeding Discharge Attestations [employer] Time Spent in Discharge Care*: less than 30 min Coding Level of Care Code Acute Code for Chg Fwd Diagnoses Spontaneous vaginal delivery O80
--- NOTE | 2024-04-05 14:51 | ANE.PACU2 ---
Inpatient post-anesthesia follow up: Airway intact: Yes Vital signs: Temperature 98.2 F Pulse Rate 82 Respiratory Rate 17 Blood Pressure 117/77 Pulse Oximetry 97 Oxygen Delivery Me thod Room Air Oxygen Flow Rate Fraction of Inspir ed Oxygen Hydration adequate: Yes Nausea and vomiting: No Pain level: 1 Mental status: Baseline Epidural Start/End: Epidural Start Date: 04/04/24 Epidural Start Time: 12:00 Epidural End Date: 04/04/24 Epidural End Time: 19:25
== END 2024-04-05 20:10 | disposition home or self-care (01) | DRG 807 ==
LOC: OPOB 12:14 → OBGYN 12:14
PROVIDERS: Admitting Provider Family Medicine; PCP Family Medicine; Visit Provider Family Medicine
DX: O24.425 Gestational diabetes mellitus in childbirth, controlled by oral hypoglycemic drugs (principal); Z37.0 Single live birth; Z34.90 Encounter for supervision of normal pregnancy, unspecified, unspecified trimester; Z3A.39 39 weeks gestation of pregnancy; O99.824 Streptococcus B carrier state complicating childbirth; O76 Abnormality in fetal heart rate and rhythm complicating labor and delivery; O70.1 Second degree perineal laceration during delivery
CPT/HCPCS: 36415; 36416; 59025; 59409; 82962; 85025; 85027; 86850; 86900; 96372; 99211; J0290; J2210; J2590; J2795; J3490; J7120; J7121

== ENCOUNTER 2024-08-10 03:30 | Emergency (ER) | payer BC, MEDICAID, SELFPAY ==
[2024-08-10 03:44] VITALS: BP 138/92; PULSE 114; RESP 20; TEMP 37.4; O2SAT 99; BMI 39.1
[2024-08-10] MEDS: sodium chloride 0.9% 1,000 ML 999 ML IV (04:11)
[2024-08-10] MEDS: morphine 4 mg/mL SDV 1 mL IVP (04:11)
[2024-08-10] MEDS: ondansetron 2 mg/ML SDV 2 mL 4 MG IVP (04:11)
[2024-08-10 04:13] LABS: Basophils % 0.3 %; Eosinophils # 0.1 10^3/uL (0.0-0.8); Eosinophils % 1.1 %; Hematocrit 36.9 % (36-47); Lymphocytes # 1.2 10^3/uL (0.8-4.8); Lymphocytes % 10.3 %; Mean Corpuscular HGB Conc 33.3 g/dL (30-55); Mean Corpuscular Hemoglobin 27.8 pg (27-33); Mean Corpuscular Volume 83.5 fl (85-98); Monocytes # 0.9 10^3/uL (0.2-0.9); Monocytes % 7.4 %; Neutrophils # 9.53 10^3/uL (1.8-7.7); Neutrophils % 80.6 %; Nucleated Red Blood Cells % 0 %; Platelet Count 234 10^3/cmm (157-399); Red Blood Count 4.42 10^6/uL (3.85-5.65); Red Cell Distribution Width 14.6 % (12.1-15.1)
[2024-08-10 04:18] VITALS: BP 152/78; PULSE 101; RESP 18; O2SAT 98
[2024-08-10 04:25] LABS: HCG, Serum Qual Negative (Negative)
--- NOTE | 2024-08-10 04:28 | CTR_ITS ---
PROCEDURE INFORMATION: Exam: CT Abdomen And Pelvis With Contrast Exam date and time: 08/10/2024 4:45 AM Age: 29 years old Clinical indication: Pain and abnormal findings; Abnormal lab test; Abdominal pain; Localized; Right lower quadrant (rlq); Rlq pain with fever and elevated wbc. TECHNIQUE: Imaging protocol: Computed tomography of the abdomen and pelvis with contrast. Radiation optimization: All CT scans at this facility use at least one of these dose optimization techniques: automated exposure control; mA and/or kV adjustment per patient size (includes targeted exams where dose is matched to clinical indication); or iterative reconstruction. Contrast material: OMNI 350; Contrast volume: 100 ml; Contrast route: INTRAVENOUS (IV); COMPARISON: US transvaginal [id number] 05/14/2023 8:14 AM RADIATION DOSE METRICS: Total DLP (mGy-cm): 854.08 FINDINGS: Liver: Diffuse hepatic hypoattenuation. Gallbladder and biliary ducts: Normal. No calcified stones. No ductal dilation. Pancreas: Normal. No ductal dilation. Spleen: Normal. No splenomegaly. Adrenal glands: Normal. No mass. Kidneys and ureters: Punctate nonobstructing left renal stone. Stomach and bowel: Unremarkable. No obstruction. No mucosal thickening. Appendix: No evidence of appendicitis. Intraperitoneal space: Unremarkable. No free air. No significant fluid collection. Vasculature: Unremarkable. No abdominal aortic aneurysm. Lymph nodes: Unremarkable. No enlarged lymph nodes. Urinary bladder: Unremarkable as visualized. Reproductive: Unremarkable as visualized. Bones/joints: Unremarkable. No acute fracture. Soft tissues: Unremarkable. CT/CT abdomen pelvis w con* [id number] IMPRESSION: 1. Punctate nonobstructing left renal stone. 2. No evidence of acute abdominal or pelvic process. 3. Hepatic steatosis.
[2024-08-10 04:31] LABS: Alanine Aminotransferase 24 U/L (0-33); Albumin Level 4.8 g/dL (3.5-5.2); Alkaline Phosphatase 93 U/L (35-105); Anion Gap 20.7 (5-19); Aspartate Amino Transferase 15 U/L (0-32); Blood Urea Nitrogen 13 mg/dL (6-20); C Reactive Protein 11.6 mg/L (0.0-4.9); Calcium 9.9 mg/dL (8.5-10.5); Carbon Dioxide 22 mmol/L (22-29); Chloride 103 mmol/L (98-107); Creatinine Clr Calc Pharmacy 141.2501; Globulin 3.1 g/dL (1.3-4.6); Glomerular Filtration Rate 97.6 mL/min (90-130); Glucose 142 mg/dL (65-115); Osmolality Calculated 297 mOsm/kg (285-295); Potassium 3.7 mmol/L (3.5-5.1); Sodium 142 mmol/L (136-145); Total Bilirubin 0.3 mg/dL (0.15-1.2); Total Protein 7.9 g/dL (6.6-8.7)
[2024-08-10 04:44] LABS: Add Urine Microscopic? NO
[2024-08-10] MEDS: iohexol 350 mg/mL 500 mL Btl (per mL) IV (04:46)
[2024-08-10] MEDS: ketorolac 30 mg/mL INJ IVP (04:46)
--- NOTE | 2024-08-10 04:48 | PC.NURSE ---
pt refused morphine due to breast feeding her 4 month old. RN was unable to do undo medication.
[2024-08-10 04:56] LABS: Add Urine Culture? No; Bilirubin Urine Neg (Negative); Blood Urine Neg (Negative); Charge for UA Resulting for Rev; Glucose Urine UA Norm (Normal); Ketones Urine Negative (Negative); Leukocyte Esterase Urine Negative (Negative); Nitrate Urine Negative (Negative); Protein Urine Neg (Negative); Urine Appearance Clear (CLEAR); Urine Color Yellow (Yellow); Urobilinogen Urine Norm (Negative); pH Urine 5 (5-7)
[2024-08-10 05:00] VITALS: BP 142/82; PULSE 123; RESP 20; O2SAT 97
--- NOTE | 2024-08-10 05:10 | ED_ITS ---
HPI - Abdominal Pain 2 General: Chief Complaint: Abdominal Pain Stated Complaint: ABD and Back Pain Time Seen by Provider: 08/10/24 03:49 History of Present Illness: 29-year-old female, healthy, breast-feed ing, presenting with right lower quadrant pain. She notes that the pain started around 11 PM last night, but became sharp and much worse around 2 AM. 2 days ago, she went to [facility], and had vomiting and diarrhea on the way home. No other sick contacts. She has been chilling and running a temperature. Pain is on the right side of her abdomen, very low near her hip, and in her back as well. Related Data Allergies Allergy/AdvReac Type Severity Reaction Status Date / Time No Known Allergies Allergy Verified 02/25/24 10:51 PFSH ED 2 PFSH: Medical History Spontaneous vaginal delivery Gestational diabetes mellitus (GDM) affecting second No pertinent past medical history Denies diabetes, asthma, hypertension, seizures, DVT/PE PCP: Dr. Reid Hypothyroidism States that she was diagnosed at the age of 14 with hypothyroidism and took medication until 2016 when lab work showed that she did not have hypothyroidism anymore. Polycystic ovarian syndrome Diagnosed in 01/2017 based on ultrasound, lab work and oligomenorrhea. Was treated by reproductive endocrinology in [place] with letrozole and got in 2018. Surgical History No significant past surgical history Family History Grandmother Thyroid cancer maternal Diabetes maternal Denies family history of Colon cancer Ovarian cancer Heart disease Hyperlipidemia Breast cancer Hypertension Uterine cancer Stroke Social History Smoking and tobacco/nicotine status: former use of tobacco/nicotine Alcohol intake: current Substance/Drug Use: never Physical Exam 2 Const: COMMON NORMALS: no acute distress GENERAL APPEARANCE: cooperative; not ill appearing and not frail appearing HENMT: COMMON NORMALS: normocephalic, atraumatic and Normal external nose present HEAD & SCALP: normocephalic and atraumatic FACE & SINUS: normal facial exam and face symmetric NOSE: Normal external nose present Eye: COMMON NORMALS: Equal, round and reactive pupils present and EOMs intact bilaterally PUPIL: Yes Equal, round and reactive pupils present Neck/C-Spine: GENERAL: Yes trachea midline Chest: CHEST: Yes Symmetrical chest wall rise Resp: COMMON NORMALS: normal respiratory effort, No retractions, No use of accessory muscles and clear to auscultation bilaterally AUSCULTATION: clear to auscultation bilaterally Cardio: COMMON NORMALS: regular rate and regular rhythm RATE: regular rate RHYTHM: regular rhythm GI: COMMON NORMALS: Normal to inspection, nondistended, normoactive bowel sounds present and Soft to palpation PALPATION: Yes Soft to palpation, Yes Tenderness to palpation present (GI) Details: RLQ and Yes Guarding due to palpation present (GI) OTHER: Positive bed shake tenderness Extremity: COMMON NORMALS: no pedal edema Neuro: CARLTON COMA SCALE: document GCS findings Coleman coma scale eye opening: Spontaneous Carlton coma scale verbal response: Orientated Carlton coma scale motor response: Obey commands Carlton coma scale total score: 15 S ENSORY EXAM: Yes extremities (intact) Psych: COMMON NORMALS: speech normal SPEECH: Yes normal speech Skin: COMMON NORMALS: no rashes or lesions noted GENERAL SKIN EXAM: no rashes or lesions noted Course 2 Vital Signs: Vital signs: Vital Signs Temperature 99.3 F 08/10/24 03:44 Pulse Rate 102 H 08/10/24 06:00 Respiratory Rate 18 08/10/24 06:00 Blood Pressure 149/89 08/10/24 06:00 Pulse Oximetry 96 08/10/24 06:00 Oxygen Delivery Me thod Room Air 08/10/24 03:44 MDM - Abdominal Pain Medical Decision Making Tachycardic, mildly elevated temperature. She is getting IV fluid. White blood cell count is 12. CRP is mildly elevated at 12 as well. Blood sugar is 142. Other laboratory is not remarkable. Her urinalysis is negative. CT of the abdomen pelvis is pending. CT is nonacute. Ultrasound is ordered to rule out ovarian torsion, with good flow to the right ovary. She will be discharged. Symptomatic treatment. Lab Data 08/10/24 04:07 08/10/24 04:07 Labs/Radiology: Radiology Impressions Abdomen/Pelvis CT 08/10/24 04:28 IMPRESSION: 1. Punctate nonobstructing left renal stone. 2. No evidence of acute abdominal or pelvic process. 3. Hepatic steatosis. Laboratory Results WBC 11.80 10^3/uL (3.29-11.43) H 08/10/24 04:07 RBC 4.42 10^6/uL (3.85-5.65) 08/10/24 04:07 Hgb 12.30 g/dL (11.27-16.99) 08/10/24 04:07 Hct 36.9 % (36-47) 08/10/24 04:07 MCV 83.5 fl (85-98) L 08/10/24 04:07 MCH 27.8 pg (27-33) 08/10/24 04:07 MCHC 33.3 g/dL (30-55) 08/10/24 04:07 RDW 14.6 % (12.1-15.1) 08/10/24 04:07 Plt Count 234 10^3/cmm (157-399) 08/10/24 04:07 MPV 9.0 fL (7.4-10.4) 08/10/24 04:07 Neut % (Auto) 80.6 % 08/10/24 04:07 Lymph % (Auto) 10.3 % 08/10/24 04:07 [place] % (Auto) 7.4 % 08/10/24 04:07 Eos % (Auto) 1.1 % 08/10/24 04:07 Baso % (Auto) 0.3 % 08/10/24 04:07 Neut # (Auto) 9.53 10^3/uL (1.8-7.7) H 08/10/24 04:07 Lymph # (Auto) 1.2 10^3/uL (0.8-4.8) 08/10/24 04:07 [place] # (Auto) 0.9 10^3/uL (0.2-0.9) 08/10/24 04:07 Eos # (Auto) 0.1 10^3/uL (0.0-0.8) 08/10/24 04:07 Baso # (Auto) 0.0 10^3/uL (0.0-0.1) 08/10/24 04:07 Nucleated RBC % (auto) 0 % 08/10/24 04:07 Nucleated RBCs # 0.0 /100WBC 08/10/24 04:07 Sodium 142 mmol/L (136-145) 08/10/24 04:07 Potassium 3.7 mmol/L (3.5-5.1) 08/10/24 04:07 Chloride 103 mmol/L (98-107) 08/10/24 04:07 Carbon Dioxide 22 mmol/L (22-29) 08/10/24 04:07 Anion Gap 20.7 (5-19) H 08/10/24 04:07 BUN 13 mg/dL (6-20) 08/10/24 04:07 Creatinine 0.7 mg/dL (0.5-0.9) 08/10/24 04:07 GFR Calculation 97.6 mL/min (90-130) 08/10/24 04:07 Glucose 142 mg/dL (65-115) H 08/10/24 04:07 Calculated Osmolality 297 mOsm/kg (285-295) H 08/10/24 04:07 Calcium 9.9 mg/dL (8.5-10.5) 08/10/24 04:07 Total Bilirubin 0.3 mg/dL (0.15-1.2) 08/10/24 04:07 AST 15 U/L (0-32) 08/10/24 04:07 ALT 24 U/L (0-33) 08/10/24 04:07 Alkaline Phosphatase 93 U/L (35-105) 08/10/24 04:07 C-Reactive Protein 11.6 mg/L (0.0-4.9) H 08/10/24 04:07 Total Protein 7.9 g/dL (6.6-8.7) 08/10/24 04:07 Albumin 4.8 g/dL (3.5-5.2) 08/10/24 04:07 Globulin 3.1 g/dL (1.3-4.6) 08/10/24 04:07 HCG, Qual Negative (Negative) 08/10/24 04:07 Urine Color Yellow (Yellow) 08/10/24 04:38 Urine Appearance Clear (CLEAR) 08/10/24 04:38 Urine pH 5 (5-7) 08/10/24 04:38 Ur Specific Girard 1.020 (1.005-1.030) 08/10/24 04:38 Urine Protein Neg (Negative) 08/10/24 04:38 Urine Glucose (UA) Norm (Normal) 08/10/24 04:38 Urine Ketones Negative (Negative) 08/10/24 04:38 Urine Blood Neg (Negative) 08/10/24 04:38 Urine Nitrate Negative (Negative) 08/10/24 04:38 Urine Bilirubin Neg (Negative) 08/10/24 04:38 Urine Urobilinogen Norm mg/dL (Negative) 08/10/24 04:38 Ur Leukocyte Esterase Negative (Negative) 08/10/24 04:38 Amorphous Sediment Not Reportable 08/10/24 04:38 All radiology interpretation(s) finalized by discharge Discharge Plan Discharge Patient Disposition: Home Clinical Impression: Abdominal pain Qualifiers: Abdominal location: right lower quadrant Qualified Code(s): R10.31 - Right lower quadrant pain Condition: Stable Discharge Orders: Discharge ED (Routine); Ordered 08/10/24 Ordered By: Chema Jordan Referrals: Brett Ballesteros MD [Primary Care Provider] - 1-3 days Patient Instructions: Abdominal Pain (ED), Opioid Safety, Pain Management Activity Restrictions/Additional Instructions: Return for return of significant pain, vomiting liquids or medications, fever greater than 100 ?F, any other concerning symptoms. See your doctor later this week for follow-up. Print Language: Slovak Coding Level of Care Code ED Tooth Cutter Clutch for Tye Rondon
--- NOTE | 2024-08-10 05:25 | USR_ITS ---
PROCEDURE INFORMATION: Exam: US Duplex Artery or Vein of the Abdominal and/or Reproductive Organs, Limited Ovaries Exam date and time: 08/10/2024 5:53 AM Age: 29 years old Clinical indication: Pelvic pain; Additional info: Rlq pain. Ovarian torsion? TECHNIQUE: Imaging protocol: Real-time duplex ultrasound scan of the arterial or venous flow with kemp scale, color Doppler flow and spectral waveform analysis with image documentation. Limited duplex exam focused on the ovaries. Duplex exam was performed to evaluate for torsion and other vascular conditions. COMPARISON: CT abdomen pelvis w con* [id number] 08/10/2024 4:45 AM FINDINGS: Right ovary/adnexa: Confirmed right ovarian blood flow. Normal arterial inflow on spectral sonography. Left ovary/adnexa: Confirmed left ovarian blood flow. Normal arterial inflow on spectral sonography. PROCEDURE INFORMATION: Exam: US Pelvis Transabdominal, Complete, and US Pelvis Transvaginal, Non-obstetric Exam date and time: 08/10/2024 5:53 AM Age: 29 years old Clinical indication: Pelvic pain; Additional info: Rlq pain. Ovarian torsion? TECHNIQUE: Imaging protocol: Real-time complete transabdominal and transvaginal pelvic ultrasound (non-obstetric) with image documentation. Transvaginal imaging was used for better evaluation of the endometrium, adnexa, and/or cervix. COMPARISON: CT abdomen pelvis w con* [id number] 08/10/2024 4:45 AM FINDINGS: Uterus: Uterus is normal. Endometrial stripe is normal. Right ovary/adnexa: Ovary is normal. No mass. Normal arterial and venous waveforms on duplex. Left ovary/adnexa: Ovary is normal. No mass. Normal arterial and venous waveforms on duplex. Intraperitoneal space: No intraperitoneal fluid. Urinary bladder: Normal. US/US pelvic complete* [id number] IMPRESSION: Blood flow confirmed to both ovaries. IMPRESSION: No acute findings.
[2024-08-10 06:00] VITALS: BP 149/89; PULSE 102; RESP 18; O2SAT 96
== END 2024-08-10 06:30 | disposition home or self-care (01) ==
PROVIDERS: Emergency Provider Emergency Medicine; PCP Family Medicine
DX: R10.31 Right lower quadrant pain (principal); Z87.891 Personal history of nicotine dependence
CPT/HCPCS: 74177; 76856; 80053; 81003; 84703; 85025; 86140; 96374; 96375; 99285; J1885; J2270; J2405; J7030